=== PATIENT | female | born 1955 | race Caucasian/White ===

== ENCOUNTER → 2016-11-09 | Outpatient (CLI) | payer BC ==
--- NOTE | 2016-11-12 07:15 | MM ---
Reason for exam: screening (asymptomatic). Last mammogram was performed 1 year ago. History: Patient is postmenopausal. Benign excisional biopsy of the right breast. Physical Findings: A clinical breast exam by your physician is recommended on an annual basis and results should be correlated with mammographic findings. MG 3D Screening Mammo W/Cad Bilateral CC and MLO view(s) were taken. Prior study comparison: November 04, 2015, bilateral MG 3d screening mammo w/cad. October 24, 2014, bilateral MG screening mammo w CAD. The breast tissue is heterogeneously dense. This may lower the sensitivity of mammography. No significant changes when compared with prior studies. ASSESSMENT: Benign, BI-RAD 2 RECOMMENDATION: Routine screening mammogram of both breasts in 1 year.
== END | disposition home or self-care (01) ==
LOC: RADMAMWWP 07:55
PROVIDERS: ATTEND Internal Medicine
DX: Z12.31 Encounter for screening mammogram for malignant neoplasm of breast (principal)
CPT/HCPCS: 77063; G0202

== ENCOUNTER 2017-09-17 06:47 | Day surgery (SDC) | payer BC ==
[2017-09-14 15:58] VITALS: BMI 27.4
[2017-09-17] MEDS ORDERED: LIDOCAINE 1% 20 ML VIAL (10MG/ML) FOR IV START INTRADERMA PRN (06:53)
[2017-09-17] MEDS ORDERED: LACTATED RINGERS 1,000 ML IV SCH (06:53)
[2017-09-17 07:17] VITALS: RESP 16; TEMP 97.3
[2017-09-17] MEDS ORDERED: PROPOFOL 10 MG/ML 20 ML VIAL IV ONE (07:43)
[2017-09-17] MEDS ORDERED: LIDOCAINE 1% INJ 10MG/ML (20 ML MDV) ONE (07:43)
--- NOTE | 2017-09-17 07:47 | P.GSHP ---
History of Present Illness H&P Date: 09/17/17 Chief Complaint: Colon cancer screening Patient here today for colonoscopy. Last colonoscopy 5 years ago. She has a family history of colon cancer in her family. Her last colonoscopy was normal. No bowel related complaints. Past Medical History Past Medical History: Cancer, Hyperlipidemia Additional Past Medical History / Comment(s): skin cancer History of Any Multi-Drug Resistant Organisms: None Reported Past Surgical History: Breast Surgery, Section Additional Past Surgical History / Comment(s): skin cancer removed from face, rt oophorectomy, rt breast biopsy, Past Anesthesia/Blood Transfusion Reactions: No Reported Reaction Smoking Status: Never smoker - Past Family History Mother Family Medical History: Cancer Medications and Allergies Home Medications Medication Instructions Recorded Confirmed Type Apple Cider Vinegar Tab 1 tab PO DAILY 09/14/17 09/17/17 History Aspirin [Adult Low Dose Aspirin EC] 81 mg PO DAILY 09/14/17 09/17/17 History Flaxseed Oil [[place]-3 Flaxseed Oil] 1,000 mg PO DAILY 09/14/17 09/17/17 History Ginkgo Biloba [place] Extract [Ginkgo] 120 mg PO DAILY 09/14/17 09/17/17 History Glucosam/Damian-Msm1/C/Kervin/Bosw 1 each PO DAILY 09/14/17 09/17/17 History [Glucosamine-Chondroitin Tablet] Multivitamins, Thera [Multivitamin 1 tab PO DAILY 09/14/17 09/17/17 History (formulary)] Naproxen Sodium 220 mg PO DAILY 09/14/17 09/17/17 History Niacin 500 mg PO DAILY 09/14/17 09/17/17 History [place] 3-6-9 1 tab PO DAILY 09/14/17 09/17/17 History Red Yeast Rice 600 mg PO DAILY 09/14/17 09/17/17 History [place] Cumin 500 mg PO DAILY 09/14/17 09/17/17 History Ubidecarenone [Co Q-10] 100 mg PO DAILY 09/14/17 09/17/17 History Allergies Allergy/AdvReac Type Severity Reaction Status Date / Time No Known Allergies Allergy Verified 09/14/17 15:45 Surgical - Exam Vital Signs Temp Pulse Resp BP Pulse Ox 97.3 F L 67 16 150/88 99 09/17/17 07:16 09/17/17 07:16 09/17/17 07:16 09/17/17 07:16 09/17/17 07:16 Physical exam: General: Well-developed, well-nourished HEENT: Normocephalic, sclerae nonicteric Abdomen: Nontender, nondistended Extremities: No edema Neuro: Alert and oriented Assessment and Plan (1) Colon cancer screening Narrative/Plan: Will proceed with colonoscopy at this time. Current Visit: Yes Status: Acute Code(s): Z12.11 - ENCOUNTER FOR SCREENING FOR MALIGNANT NEOPLASM OF COLON SNOMED Code(s): 219167880
--- NOTE | 2017-09-17 08:08 | P.PCN ---
Date of Procedure: 09/17/17 Procedure(s) Performed: PREOPERATIVE DIAGNOSIS: Colon cancer screening, family history of colon cancer in mother POSTOPERATIVE DIAGNOSIS: Hepatic flexure polyp, tortuous rectosigmoid PROCEDURE: Colonoscopy with snare polypectomy ANESTHESIA: MAC SURGEON: Donnie Chanel M.D. SPECIMENS: Polyp ENDOSCOPIC PROCEDURE: The patient was placed on the endoscopy table in the left decubitus position. The Olympus colonoscope was inserted into the anus and passed under direct visualization to the base of the cecum. The appendiceal orifice was visualized. From that point the scope was slowly withdrawn inspecting all surfaces carefully. There were no neoplastic inflammatory or polypoid lesions throughout the cecum and ascending colon. At the hepatic flexure a small polyp was identified and removed using the snare technique. The remainder of the transverse descending sigmoid and rectum are free of any neoplastic inflammatory or polypoid lesions. There was no visible diverticulosis. The patient's rectosigmoid was quite tortuous initially making it difficult to navigate. Digital rectal examination was normal. The patient was taken to the recovery room in stable condition per anesthesia guidelines. RECOMMENDATIONS: Await biopsy results. Anticipate follow-up colonoscopy 5 years.
[2017-09-17 08:33] VITALS: BP 155/92; PULSE 61
== END 2017-09-17 08:57 | disposition home or self-care (01) ==
LOC: ORWHC2ENDO 06:47
PROVIDERS: ATTEND Surgery
DX: Z12.11 Encounter for screening for malignant neoplasm of colon (principal); D12.3 Benign neoplasm of transverse colon; I25.10 Atherosclerotic heart disease of native coronary artery without angina pectoris; D21.4 Benign neoplasm of connective and other soft tissue of abdomen; E78.5 Hyperlipidemia, unspecified; Z79.82 Long term (current) use of aspirin; Z79.899 Other long term (current) drug therapy; Z80.0 Family history of malignant neoplasm of digestive organs
CPT/HCPCS: 88305; 88342; 88341; 45385; J2001; J2704

== ENCOUNTER → 2017-11-26 | Outpatient (CLI) | payer BC ==
--- NOTE | 2017-11-30 09:43 | MM ---
Reason for exam: screening (asymptomatic). Last mammogram was performed 1 year and 1 month ago. History: Patient is postmenopausal. Benign excisional biopsy of the right breast. Physical Findings: A clinical breast exam by your physician is recommended on an annual basis and results should be correlated with mammographic findings. MG 3D Screening Mammo W/Cad Bilateral CC and MLO view(s) were taken. Prior study comparison: November 09, 2016, bilateral MG 3d screening mammo w/cad. November 04, 2015, bilateral MG 3d screening mammo w/cad. The breast tissue is heterogeneously dense. This may lower the sensitivity of mammography. No significant changes when compared with prior studies. ASSESSMENT: Negative, BI-RAD 1 RECOMMENDATION: Routine screening mammogram of both breasts in 1 year.
== END | disposition home or self-care (01) ==
LOC: RADMAMWWP 13:28
PROVIDERS: ATTEND Internal Medicine
DX: Z12.31 Encounter for screening mammogram for malignant neoplasm of breast (principal)
CPT/HCPCS: 77063; 77067

== ENCOUNTER → 2018-12-16 | Outpatient (CLI) | payer BC ==
--- NOTE | 2018-12-19 10:08 | MM ---
Reason for exam: screening (asymptomatic). Last mammogram was performed 1 year and 1 month ago. History: Patient is postmenopausal and history of other cancer. Benign excisional biopsy of the right breast. Physical Findings: A clinical breast exam by your physician is recommended on an annual basis and results should be correlated with mammographic findings. MG 3D Screening Mammo W/Cad Bilateral CC and MLO view(s) were taken. Prior study comparison: November 26, 2017, bilateral MG 3d screening mammo w/cad. November 09, 2016, bilateral MG 3d screening mammo w/cad. The breast tissue is heterogeneously dense. This may lower the sensitivity of mammography. There is chronic nodularity bilaterally. There is no dominant lesion. No significant changes when compared with prior studies. ASSESSMENT: Benign, BI-RAD 2 RECOMMENDATION: Routine screening mammogram of both breasts in 1 year.
== END | disposition home or self-care (01) ==
LOC: RADMAMWWP 07:10
PROVIDERS: ATTEND Internal Medicine
DX: Z12.31 Encounter for screening mammogram for malignant neoplasm of breast (principal)
CPT/HCPCS: 77063; 77067

== ENCOUNTER → 2020-02-22 | Outpatient (CLI) | payer BC ==
--- NOTE | 2020-02-23 13:37 | MM ---
Reason for exam: screening (asymptomatic). Last mammogram was performed 1 year and 2 months ago. History: Patient is postmenopausal and history of other cancer. Benign excisional biopsy of the right breast. Physical Findings: A clinical breast exam by your physician is recommended on an annual basis and results should be correlated with mammographic findings. MG 3D Screening Mammo W/Cad Bilateral CC and MLO view(s) were taken. Prior study comparison: December 16, 2018, bilateral MG 3d screening mammo w/cad. November 26, 2017, bilateral MG 3d screening mammo w/cad. The breast tissue is heterogeneously dense. This may lower the sensitivity of mammography. No significant changes when compared with prior studies. ASSESSMENT: Benign, BI-RAD 2 RECOMMENDATION: Routine screening mammogram of both breasts in 1 year.
== END | disposition home or self-care (01) ==
LOC: RADMAMWWP 07:14
PROVIDERS: ATTEND Internal Medicine
DX: Z12.31 Encounter for screening mammogram for malignant neoplasm of breast (principal)
CPT/HCPCS: 77063; 77067

== ENCOUNTER → 2021-02-06 | Outpatient (CLI) | payer MEDICARE ==
[2021-02-07 00:41] LABS: Chol/HDL Ratio 2.65 Ratio; HDL Cholesterol 76.3 mg/dL (40.00-60.00); LDL Cholesterol,Calculated 105.7 mg/dL (0.0-131.0)
== END | disposition home or self-care (01) ==
LOC: LABWHC1 09:30
PROVIDERS: ATTEND Nurse Practitioner Adult Health
DX: E78.2 Mixed hyperlipidemia (principal)
CPT/HCPCS: 36415; 80061; 84450; 84460

== ENCOUNTER → 2021-04-11 | Outpatient (CLI) | payer MEDICARE ==
--- NOTE | 2021-04-14 11:43 | MM ---
Reason for exam: screening (asymptomatic). Last mammogram was performed 1 year and 2 months ago. History: Patient is postmenopausal and has history of other cancer at age 61. Benign excisional biopsy of the right breast. Physical Findings: A clinical breast exam by your physician is recommended on an annual basis and results should be correlated with mammographic findings. MG 3D Screening Mammo W/Cad Bilateral CC and MLO view(s) were taken. Prior study comparison: February 22, 2020, bilateral MG 3d screening mammo w/cad. December 16, 2018, bilateral MG 3d screening mammo w/cad. The breast tissue is heterogeneously dense. This may lower the sensitivity of mammography. Stable benign calcifications. There is no discrete abnormality. No significant changes when compared with prior studies. ASSESSMENT: Benign, BI-RAD 2 RECOMMENDATION: Routine screening mammogram of both breasts in 1 year.
== END | disposition home or self-care (01) ==
LOC: RADMAMWWP 07:47
PROVIDERS: ATTEND Internal Medicine
DX: Z12.31 Encounter for screening mammogram for malignant neoplasm of breast (principal); Z78.0 Asymptomatic menopausal state
CPT/HCPCS: 77063; 77067

== ENCOUNTER → 2022-04-30 | Outpatient (CLI) | payer MEDICARE ==
--- NOTE | 2022-05-01 07:52 | MM ---
Reason for Exam: Screening (asymptomatic). Last screening mammogram was performed 12 month(s) ago. Patient History: Menarche at age 11. First Full-Term at age 26. Left ovary removed at age 40. Postmenopausal. Other cancer, age 61. Benign Excisional Biopsy on the right side. Risk Values: Jacque 5 year model risk: 2.4%. NCI Lifetime model risk: 8.3%. Prior Study Comparison: 12/16/2018 Bilateral Screening Mammogram, [facility]. 02/22/2020 Bilateral Screening Mammogram, [facility]. 04/11/2021 Bilateral Screening Mammogram, [facility]. Tissue Density: The breast tissue is heterogeneously dense. This may lower the sensitivity of mammography. Findings: Analyzed By CAD. There is a new scattered benign-appearing round calcifications redemonstrated throughout the bilateral breasts. Left axillary pacemaker device is redemonstrated. Benign-appearing right axillary lymph nodes are again seen. There is no suspicious new group of microcalcifications or new suspicious mass in either breast. Overall Assessment: Benign, BI-RAD 2 Management: Screening Mammogram of both breasts in 1 year. A clinical breast exam by your physician is recommended on an annual basis and results should be correlated with mammographic findings. Electronically signed and approved by: Papo Carbone M.D.
== END | disposition home or self-care (01) ==
LOC: RADMAMWWP 16:33
PROVIDERS: ATTEND Internal Medicine
DX: Z12.31 Encounter for screening mammogram for malignant neoplasm of breast (principal); N95.8 Other specified menopausal and perimenopausal disorders; Z90.721 Acquired absence of ovaries, unilateral; Z78.0 Asymptomatic menopausal state
CPT/HCPCS: 77063; 77067

== ENCOUNTER → 2023-04-20 | Outpatient (CLI) | payer MEDICARE ==
[2023-04-20 15:50] LABS: ALT 24 U/L (8-44); AST 17 U/L (13-35); Chol/HDL Ratio 2.77 Ratio; LDL Cholesterol,Calculated 90.4 mg/dL (0.0-131.0)
== END | disposition home or self-care (01) ==
LOC: LABWHC1 10:21
PROVIDERS: ATTEND Internal Medicine Interventional Cardiology
DX: E78.2 Mixed hyperlipidemia (principal)
CPT/HCPCS: 36415; 80061; 84450; 84460

== ENCOUNTER → 2023-05-05 | Outpatient (CLI) | payer MEDICARE ==
--- NOTE | 2023-05-06 14:13 | BD ---
EXAMINATION TYPE: Axial Bone Density DATE OF EXAM: 05/05/2023 CLINICAL HISTORY: 68 years old Female. ICD-10 CODE: N95.8 MENOPAUSE Height: 63.4 Weight: 170 FRAX RISK QUESTIONS: nothing to note here RISK FACTORS HISTORY OF: Postmenopausal woman: yes, at 55 yrs Hyperparathyroidism: no Adrenal Insufficiency: no MEDICATIONS: Additional Medications: bp meds, hx of radiation treatments, statin for cholesterol, vit d and calciu m Additional History: uterine cancer, total hyst 65 yrs old, hypertension, cholesterol, EXAM MEASUREMENTS: Bone mineral densitometry was performed using the [employer] System. Bone mineral density as measured about the Lumbar spine is: ----- L1-L4(G/cm2): 1.442 T Score Values are as follows: ----- L1: 0.7 ----- L2: 2.1 ----- L3: 2.4 ----- L4: 3.0 ----- L1-L4: 2.2 Z Score Values are as follows: ----- L1: 1.9 ----- L2: 3.3 ----- L3: 3.6 ----- L4: 4.2 ----- L1-L4: 3.4 Bone mineral density is a baseline study. Bone mineral density about the R hip (g/cm2): 1.047 Bone mineral density about the L hip (g/cm2): 1.067 T Score values are as follows: -----R Neck: 0.1 -----L Neck: -0.3 -----R Total: 0.3 -----L Total: 0.5 Z Score values are as follows: -----R Neck: 1.5 -----L Neck: 1.0 -----R Total: 1.4 -----L Total: 1.5 Bone mineral density is her first dexa study, baseline.... FRAX%s: The graph provided illustrates a 7.3% chance for a major osteoporotic fx and a 0.4% chance fo r the hips probability for fx in 10 years time. IMPRESSION: Normal (Values between +1 and -1 indicate normal bone mass). Consider repeating this study in 5 year s or sooner if there is some new clinical indication. NOTE: T-SCORE=SD OF THE YOUNG ADULT MEAN.
--- NOTE | 2023-05-07 13:19 | MM ---
Reason for Exam: Screening (asymptomatic). Last screening mammogram was performed 12 month(s) ago. Patient History: Menarche at age 11. First Full-Term at age 26. Left ovary removed at age 40. Right ovary removed at age 67. Hysterectomy at age 67. Postmenopausal. Other cancer, age 61. Benign Excisional Biopsy on the right side. Risk Values: Jacque 5 year model risk: 2.5%. NCI Lifetime model risk: 7.9%. Prior Study Comparison: 02/22/2020 Bilateral Screening Mammogram, [facility]. 04/11/2021 Bilateral Screening Mammogram, [facility]. 04/30/2022 Bilateral MG 3D screening mammo w/cad, [facility]. Tissue Density: The breast tissue is heterogeneously dense. This may lower the sensitivity of mammography. Findings: Analyzed By CAD. There is no suspicious group of microcalcifications or new suspicious mass. Benign-appearing calcifications bilaterally. Overall Assessment: Benign, BI-RAD 2 Management: Screening Mammogram of both breasts in [address] [facility] will attempt to contact patient to return for supplemental views and ultrasound if indicated. Patient should continue monthly self-breast exams. A clinical breast exam by your physician is recommended on an annual basis. This exam should not preclude additional follow-up of suspicious palpable abnormalities. Note on Jacque scores and lifetime risk: 1. A Jacque score greater than 3% is considered moderate risk. If this is the case, consider specialist referral to assess eligibility for a risk reducing agent. 2. If overall lifetime risk for the development of breast cancer is 20% or higher, the patient may qualify for future screening with alternating mammogram and breast MRI. Electronically signed and approved by: Jung Perdomo DO
== END | disposition home or self-care (01) ==
LOC: RADMAMWWP 09:41
PROVIDERS: ATTEND Internal Medicine
DX: Z12.31 Encounter for screening mammogram for malignant neoplasm of breast (principal); I10 Essential (primary) hypertension; Z78.0 Asymptomatic menopausal state
CPT/HCPCS: 77063; 77067; 77080

== ENCOUNTER → 2024-05-08 | Outpatient (CLI) | payer MEDICARE ==
--- NOTE | 2024-05-11 17:51 | MM ---
Reason for Exam: Screening (asymptomatic). Last screening mammogram was performed 12 month(s) ago. Patient History: Menarche at age 11. First Full-Term at age 26. Left ovary removed at age 40. Right ovary removed at age 67. Hysterectomy at age 67. Postmenopausal. Endometrial cancer, age 69. Previous chemotherapy. Benign Excisional Biopsy on the right side. Risk Values: Jacque 5 year model risk: 2.5%. NCI Lifetime model risk: 7.6%. Prior Study Comparison: 04/11/2021 Bilateral Screening Mammogram, [facility]. 04/30/2022 Bilateral MG 3D screening mammo w/cad, [facility]. 05/05/2023 Bilateral MG 3D screening mammo w/cad, [facility]. Tissue Density: The breasts are heterogeneously dense, which may obscure small masses. Findings: Analyzed By CAD. The pattern is symmetrical. No significant interval change. No suspicious groups of microcalcifications, spiculated or lobular masses, architectural distortion or other secondary signs of malignancy are mammographically apparent. Overall Assessment: Benign, BI-RAD 2 Management: Screening Mammogram of both breasts in 1 year. A negative mammogram report should not preclude additional follow up of suspicious palpable abnormalities. Patient should continue monthly self breast exam. A clinical breast exam by your physician is recommended on an annual basis and results should be correlated with mammographic findings. Note on Jacque scores and lifetime risk: 1. A Jacque score greater than 3% is considered moderate risk. If this is the case, consider specialist referral to assess eligibility for a risk reducing agent. 2. If overall lifetime risk for the development of breast cancer is 20% or higher, the patient may qualify for future screening with alternating mammogram and breast MRI. [facility], , 05/11/2024 5:48 PM. Electronically signed and approved by: Demond Dee D.O. Radiologis
== END | disposition home or self-care (01) ==
LOC: RADMAMWWP 08:44
PROVIDERS: ATTEND Internal Medicine
DX: Z12.31 Encounter for screening mammogram for malignant neoplasm of breast (principal); Z90.722 Acquired absence of ovaries, bilateral; Z78.0 Asymptomatic menopausal state; R92.333 Mammographic heterogeneous density, bilateral breasts
CPT/HCPCS: 77063; 77067